=== PATIENT | male | born 1970 | race Caucasian/White ===

== ENCOUNTER 2016-12-08 13:14 | Emergency (ER) | payer OTHER ==
--- NOTE | 2016-12-08 14:46 | UC ---
[facility] Dental HPI - HPI Summary HPI Summary: 46 YEAR OLD MALE PRESENTS WITH RIGHT LOWER MOLAR ABSCESS. - History of Current Complaint Chief Complaint: UCDentalProblem Stated Complaint: TOOTH ACHE Time Seen by Provider: 12/08/16 14:44 Hx Obtained From: Patient Onset/Duration: Sudden Onset Severity: Moderate Pain Scale Used: 0-10 Numeric - 5 - Allergies/Home Medications Allergies/Adverse Reactions: Allergies Allergy/AdvReac Type Severity Reaction Status Date / Time No Known Allergies Allergy Verified 12/08/16 13:31 PMH/Surg Hx/FS Hx/Imm Hx Previously Healthy: Yes - Surgical History Surgical History: Yes Surgery Procedure, Year, and Place: 2 Cardiac stents placed 12/28/11. - Family History Known Family History: Positive: None - Social History Alcohol Use: None Substance Use Type: Marijuana Substance Use Comment - Amount & Last Used: 3 x daily Smoking Status (MU): Heavy Every Day Tobacco Smoker Type: Cigarettes Length of Time of Smoking/Using Tobacco: 20 year Have You Smoked in the Last Year: Yes Household Exposure Type: Cigarettes - Immunization History Most Recent Influenza Vaccination: none Most Recent Tetanus Shot: 2011 Most Recent Pneumonia Vaccination: none Review of Systems Constitutional: Negative Skin: Negative Eyes: Negative ENT: Dental Pain Respiratory: Negative Cardiovascular: Negative Gastrointestinal: Negative Genitourinary: Negative Motor: Negative Neurovascular: Negative Musculoskeletal: Negative Neurological: Negative Psychological: Negative All Other Systems Reviewed And Are Negative: Yes Physical Exam Triage Information Reviewed: Yes Vital Signs: Initial Vital Signs Temp 36.6 C 12/08/16 13:35 Pulse 78 12/08/16 13:35 Resp 18 12/08/16 13:35 Pulse Ox 100 12/08/16 13:35 Eye Exam: Normal ENT Exam: Normal Dental: Positive: Abscess @ Neck exam: Normal Neck: Positive: 1 Respiratory Exam: Normal Cardiovascular Exam: Normal Abdominal Exam: Normal Musculoskeletal Exam: Normal Neurological Exam: Normal Psychological Exam: Normal Skin Exam: Normal Dental Complaint Course/Dx - Differential Dx/Diagnosis Provider Diagnoses: RIGHT LOWER DENTAL ABSCESS Discharge - Discharge Plan Condition: Stable Disposition: HOME Prescriptions: Amoxicillin/Clavulanate TAB* [Augmentin TAB 875*] 875 mg PO BID #20 tab Chlorhexidine MW 0.12% 473ML* [Peridex Mouth Wash 0.12%*] 15 ml MT TID PC #1 btl Naproxen [Naprosyn 500 mg] 500 mg PO BID PRN #30 tab PRN Reason: Pain Patient Education Materials: Dental Abscess (ED) Referrals: No Primary Care Phys,NOPCP [Primary Care Provider] -
== END 2016-12-08 14:55 | disposition home or self-care (01) ==
LOC: UCEAST 13:14
DX: K04.7 Periapical abscess without sinus (principal); Z95.5 Presence of coronary angioplasty implant and graft; F12.90 Cannabis use, unspecified, uncomplicated; F17.210 Nicotine dependence, cigarettes, uncomplicated
CPT/HCPCS: 99212; G0463

== ENCOUNTER 2017-08-27 09:07 | Emergency (ER) | payer OTHER ==
[2017-08-27 09:17] VITALS: BP 149/95
--- NOTE | 2017-08-27 10:04 | UC ---
Skin Complaint HPI - HPI Summary HPI Summary: 47 yo male presents with rash and swelling to his right thumb, left thumb, and left index finger. He tells me that 5 days ago he was fishing catfish in a tournament. He handled many fish with his bare hands and fingers were scraped and biten multiple times. Later that day noticed redness and swelling to the above mentioned digits. Has been applying ice with no relief. Denies fever, chills, drainage, or streaking. - History of Current Complaint Chief Complaint: UCSkin Time Seen by Provider: 08/27/17 10:03 Stated Complaint: SKIN COMPLAINT Hx Obtained From: Patient Onset/Duration: Sudden Onset Skin Exposure Onset/Duration: Days Ago Onset Severity: Moderate Current Severity: Moderate Pain Intensity: 6 Pain Scale Used: 0-10 Numeric - Allergy/Home Medications Allergies/Adverse Reactions: Allergies Allergy/AdvReac Type Severity Reaction Status Date / Time No Known Allergies Allergy Verified 08/27/17 09:19 Review of Systems Constitutional: Negative Skin: Rash Respiratory: Negative Cardiovascular: Negative Neurovascular: Negative Musculoskeletal: Negative Neurological: Negative Psychological: Negative All Other Systems Reviewed And Are Negative: Yes PMH/Surg Hx/FS Hx/Imm Hx Previously Healthy: Yes Endocrine History: Dyslipidemia Cardiovascular History: Cardiac Disease, Hypertension - Surgical History Surgical History: Yes Surgery Procedure, Year, and Place: 2 Cardiac stents placed 12/28/11. - Family History Known Family History: Positive: None - Social History Occupation: Employed Full-time Lives: With Family Alcohol Use: None Substance Use Type: Marijuana Substance Use Comment - Amount & Last Used: 3 x daily Smoking Status (MU): Former Smoker Type: Cigarettes Length of Time of Smoking/Using Tobacco: 20 year Have You Smoked in the Last Year: Yes Household Exposure Type: Cigarettes - Immunization History Most Recent Influenza Vaccination: none Most Recent Tetanus Shot: 2011 Most Recent Pneumonia Vaccination: none Physical Exam - Summary Physical Exam Summary: GENERAL: NAD. WDWN. No pain distress. SKIN: Left and right thumbs and left index finger: Moderate edema. Diffuse scratches and mild erythema. Mild TTP. No streaking, bleeding, or drainage. NECK: Supple. Nontender. No lymphadenopathy. CHEST: No accessory muscle use. Breathing comfortably and in no distress. CV: Pulses intact radial and ulnar. NEURO: Alert. CN II-XII grossly intact. PSYCH: Age appropriate behavior. Triage Information Reviewed: Yes Vital Signs: Initial Vital Signs Temp 98 F 08/27/17 09:13 Pulse 80 08/27/17 09:13 Resp 18 08/27/17 09:13 BP 149/95 08/27/17 09:13 Pulse Ox 100 08/27/17 09:13 Course/Dx - Course Course Of Treatment: Cellulitis. Rx for keflex - Diagnoses Provider Diagnoses: Cellulitis fingers Discharge - Sign-Out/Discharge Documenting (check all that apply): Discharge/Admit/Transfer - Discharge Plan Condition: Stable Disposition: HOME Prescriptions: Cephalexin CAP* [Keflex CAP*] 500 mg PO TID #21 cap Patient Education Materials: Cellulitis (DC) Referrals: No Primary Care Phys,NOPCP [Primary Care Provider] - Additional Instructions: If you develop a fever, shortness of breath, chest pain, new or worsening symptoms - please call your PCP or go to the ED. Your blood pressure was high at todays visit. Please see your primary provider within 4 weeks for recheck and re-evaluation. 1) If your fingers do not improve or seem to worsen - please go to the ED - Billing Disposition and Condition Condition: STABLE Disposition: Home
== END 2017-08-27 10:22 | disposition home or self-care (01) ==
LOC: UCEAST 09:07
DX: L03.012 Cellulitis of left finger (principal); L03.011 Cellulitis of right finger; E78.5 Hyperlipidemia, unspecified; I10 Essential (primary) hypertension; I51.9 Heart disease, unspecified; Z95.5 Presence of coronary angioplasty implant and graft; Z87.891 Personal history of nicotine dependence
CPT/HCPCS: 99202; G0463

== ENCOUNTER 2017-11-11 15:57 | Inpatient (IN) | payer OTHER ==
--- NOTE | 2017-11-11 16:13 | ED ---
HPI Chest Pain - HPI Summary HPI Summary: 47 y/o male presents to the ED c/o mild chest discomfort diffusely for 3-4 days. Pt states it "felt different, like indigestion". Denies CP currently. Denies SOB, N/V. Associated sx: diaphoresis. Pt seen at PCP and had an abnormal EKG, sent to ED. 2x prior TX, stents placed. Former smoker. 81 ASA today. - History of Current Complaint Chief Complaint: EDChestPainROMI Hx Obtained From: Patient Onset/Duration: Started Days Ago Pain Intensity: 1 Pain Scale Used: 0-10 Numeric Chest Pain Location: Diffuse Character: Other: - "different like indigestion" Aggravating Factor(s): Nothing Alleviating Factor(s): Nothing Associated Signs and Symptoms: Positive: Chest Pain, Diaphoresis. Negative: Shortness of Breath, Vomiting - Allergy/Home Medications Allergies/Adverse Reactions: Allergies Allergy/AdvReac Type Severity Reaction Status Date / Time No Known Allergies Allergy Verified 11/11/17 16:05 Home Medications: Home Medications Aspirin EC TAB* [Ecotrin EC Low Dose 81 MG*] 81 mg PO QAM 11/11/17 [History Confirmed 11/11/17] Clopidogrel TAB* [Plavix TAB*] 75 mg PO DAILY 11/11/17 [History Confirmed ] Lovastatin (NF) [Mevacor (NF)] 40 mg PO BEDTIME 11/11/17 [History Confirmed ] Metoprolol Tartrate TAB* [Lopressor TAB*] 25 mg PO BID 11/11/17 [History Confirmed 11/11/17] [place]-3 Fatty Acids (Nf) [Fish Oil (NF)] 1,000 mg PO DAILY 11/11/17 [History Confirmed 11/11/17] PMH/Surg Hx/FS Hx/Imm Hx Previously Healthy: No Endocrine/Hematology History: Denies: Hx Diabetes, Hx Thyroid Disease Cardiovascular History: Reports: Hx Angioplasty - stent to RCA 12/28/11, Hx Hypertension Respiratory History: Denies: Hx Asthma, Hx Chronic Obstructive Pulmonary Disease (COPD), Hx Sleep Apnea GI History: Denies: Hx Ulcer - Surgical History Surgery Procedure, Year, and Place: 2 Cardiac stents placed 12/28/11. Infectious Disease History: No Infectious Disease History: Denies: Hx Clostridium Difficile, Hx Hepatitis, Hx Human Immunodeficiency Virus (HIV), Hx Shingles, Hx Tuberculosis, Hx Known/Suspected VRE, Hx Known/ Suspected VRSA, History Other Infectious Disease, Traveled Outside the [place] in Last 30 Days - Family History Known Family History: Positive: None - Social History Alcohol Use: None Substance Use Type: Reports: Marijuana Substance Use Comment - Amount & Last Used: 3 x daily Smoking Status (MU): Former Smoker Type: Cigarettes Length of Time of Smoking/Using Tobacco: 20 year Have You Smoked in the Last Year: Yes Review of Systems Positive: Skin Diaphoresis Eyes: Negative ENT: Negative Positive: Chest Pain Respiratory: Negative Gastrointestinal: Negative Genitourinary: Negative Musculoskeletal: Negative Skin: Negative Neurological: Negative Psychological: Normal All Other Systems Reviewed And Are Negative: No Physical Exam - Summary Physical Exam Summary: Appearance: Alert, conversive, nontoxic appearing Skin: Warm, dry, no mottling, no rashes, no contusions HEENT: EOMI, PERRL, moist mucous membranes Neck: No masses on the neck, supple Respiratory: Clear to auscultation, breath sounds present, no rales, no rhonchi , no wheezes Cardiovascular: RRR, pulses are symmetrical in both lower and upper extremities Abdomen: Soft, non-tender Bowel Sounds: Present Musculoskeletal: No CVA tenderness, no obvious deformity, moving all extremities in a grossly normal manner Neurological: A&Ox3, CN II-XII Intact, moving all extremities symmetrically Psychiatric: Normal affect and mood Triage Information Reviewed: Yes Vital Signs On Initial Exam: Initial Vitals Temp Pulse Resp BP Pulse Ox 98.8 F 76 20 152/91 95 11/11/17 16:01 11/11/17 16:01 11/11/17 16:01 11/11/17 16:01 11/11/17 16:01 Vital Signs Reviewed: Yes Diagnostics - Vital Signs Vital Signs Temp Pulse Resp BP Pulse Ox 11/11/17 16:01 98.8 F 76 20 152/91 95 - Laboratory Result Diagrams: 11/11/17 16:23 11/11/17 16:23 Lab Statement: Any lab studies that have been ordered have been reviewed, and results considered in the medical decision making process. - Radiology CXR Xray Interpretation: No Acute Changes Radiology Interpretation Completed By: Radiologist Re-Evaluation - Re-Evaluation 1 Re-Evaluation Time: 17:15 Comment: discuss plan to admit. pt agrees Chest Pain Course/Dx - Course Assessment/Plan: 47 y/o male w/ mild chest discomfort for 3-4 days. Sent from PCP after abnormal EKG. 2 previous TX. CXR NAD. EKG - SR @ 64 BPM. Prolonged QRSD, Normal QTc, Inverted ST T waves in III and aVF. Spoke with Dr. Briggs, who accepted the pt for admission. - Diagnoses Provider Diagnoses: NSTEMI (non-ST elevated myocardial infarction) - Provider Notifications Discussed Care Of Patient With: Anupama Briggs Time Discussed With Above Provider: 17:10 Instructed by Provider To: Admit As Inpatient Discharge - Sign-Out/Discharge Documenting (check all that apply): Patient Departure - Discharge Plan Condition: Stable Disposition: ADMITTED TO [facility] Referrals: No Primary Care Phys,NOPCP [Primary Care Provider] - - Billing Disposition and Condition Condition: STABLE Disposition: Admitted to [facility] - Attestation Statements Document Initiated by Scribe: Yes Documenting Scribe: Wolf Talley Provider For Whom Scribe is Documenting (Include Credential): Claudia Ya MD Scribe Attestation: Wolf Shetty, scribed for Claudia Ya MD on 11/11/17 at 1814. Scribe Documentation Reviewed: Yes Provider Attestation: The documentation as recorded by the Wolf salomon accurately reflects the service I personally performed and the decisions made by me, Claudia Ya MD
[2017-11-11] MEDS ORDERED: Aspirin TAB* 325 MG PO ONE (16:27)
[2017-11-11] MEDS ORDERED: Aspirin 81 mg CHEW TAB* 81 MG TAB.CHEW ONE (16:37)
[2017-11-11 16:39] LABS: ABS Basophils 0.1 10^3/ul (0-0.2); ABS Eosinophils 0.4 10^3/ul (0-0.6); ABS Lymphocytes 2.8 10^3/ul (1.0-4.8); ABS Monocytes 0.5 10^3/ul (0-0.8); ABS Neutrophils 3.7 10^3/ul (1.5-7.7); ABS Nucleated RBC 0 10^3/ul; Eosinophil % 4.7 % (0-6); Hematocrit 43 % (42-52); Hemoglobin 14.4 g/dl (14.0-18.0); Lymphocyte % 37.5 % (25-47); Mean Corpuscular HGB Conc 34 g/dl (31-36); Mean Corpuscular Hemoglobin 30 pg (27-31); Mean Corpuscular Volume 88 fL (80-94); Mean Platelet Volume 7.8 um3 (7.4-10.4); Nucleated Red Blood Cells % 0; Platelet Count 299 10^3/ul (150-450); Red Blood Count 4.84 10^6/ul (4.00-5.40); Red Cell Distribution Width 15 % (10.5-15); White Blood Count 7.4 10^3/ul (3.5-10.8)
[2017-11-11 16:48] LABS: Urine Appearance Clear; Urine Blood Negative (Negative); Urine Color Yellow; Urine Ketones Negative (Negative); Urine Protein Negative (Negative); Urine Specific Gravity 1.017 (1.010-1.030); Urine Urobilinogen Negative (Negative)
[2017-11-11 16:51] LABS: EGFR Non-African American 68.3 (>60)
--- NOTE | 2017-11-11 16:53 | RAD ---
INDICATION: Chest pain COMPARISON: None TECHNIQUE: A single AP portable image taken at 1640 hours is submitted. FINDINGS: Bones/Soft Tissues: There are no acute bony findings. Cardiomediastinal: The cardiomediastinal silhouette is normal. Lungs: There are no infiltrates. Pleura: There are no pleural effusions. Other: None IMPRESSION: NO ACTIVE DISEASE.
[2017-11-11] MEDS ORDERED: Albuterol 2.5 MG/3 ML NEB.SOL* (0.083%) INH PRN (18:09)
[2017-11-11] MEDS ORDERED: Morphine INJ* 2 MG/ML 1 ML SYRINGE (TWO MG - NEW SYRINGE VERSION) IV PRN (18:09)
[2017-11-11] MEDS ORDERED: Ondansetron INJ* 2 MG/ML VIAL IV PRN (18:09)
[2017-11-11] MEDS ORDERED: Al Hydrox/Mg Hydrox/Simet LIQ* 30 ML UDC PO PRN (18:09)
[2017-11-11] MEDS ORDERED: Acetaminophen TAB* 325 MG PO PRN (18:09)
[2017-11-11] MEDS ORDERED: NS 0.9% 1000 ML* 1,000 ML IV SCH (18:15)
[2017-11-11] MEDS ORDERED: Nitroglycerin TAB 0.4 MG* 0.4 MG TAB SL PRN (18:20)
[2017-11-11] MEDS ORDERED: Heparin DRIP 25,000 UNITS(*) 25,000 UNITS/500 ML BAG IV SCH (18:45)
[2017-11-11] MEDS ORDERED: Nitroglycerin 2% OINT* 1 GM PAK TOPICAL ONE (18:45)
[2017-11-11] MEDS ORDERED: Magnesium Sulfate 1 GM IV* 1 GM/100 ML BAG IV ONE (19:09)
[2017-11-11] MEDS ORDERED: Potassium Chlor TAB* 20 MEQ TAB.ER PO ONE (19:09)
--- NOTE | 2017-11-11 20:46 | HP ---
CC: Dr. Grayson * ADMISSION HISTORY AND PHYSICAL: DATE OF ADMISSION: 11/11/17 ATTENDING HOSPITALIST: Stephani Albert MD * (DICTATED BY CELESTINA ALMEIDA) PRIMARY LAND DEVELOPMENT MANAGER: Dr. Quarles. PRIMARY CARE PHYSICIAN: None listed. CHIEF COMPLAINT: Chest pain. HISTORY OF PRESENT ILLNESS: Mr. Leonard is a 47-year-old gentleman with past medical history significant for hypertension, hyperlipidemia, coronary artery disease for which he had cardiac catheterization with stent placement back in 2011 and again in 2012 and 2013, who presented to the emergency room earlier today with 1-week history of intermittent chest burning. The patient notes that he noticed some chest discomfort more like burning in his lower chest with associated sweating on and off for the past week with minimal exertion. He had similar complaints back in 2013 and 2011 when he had myocardial infarction. He has been maintained on aspirin and Plavix since then and reports intermittent chest discomfort for the past week. He also reports drinking lots of coffee and 2 L of Pepsi on a regular basis every day. He has been a smoker most of his life who finally quit back in November 2016. Given his ongoing symptoms, he presented to the emergency room for evaluation. He has never had any stress test done per his testimony and I do not see any records to verify so. He had seen his primary care physician lastly in August of this year where he had some blood work done and reports that his blood pressure has been reasonable. He had laboratory workup that revealed normal CBC and chemistry, but his troponin came back elevated with value of 0.10. He also had an EKG done that revealed new ST depression on the inferior leads compared to a prior EKG back in 2013 when he had his PR. The patient currently had no chest pain in the emergency room, but given his multiple risk factors and his prior history of PR, we were asked to see the patient for further evaluation and to consider admission to telemetry for cardiac consultation and possible catheterization in the morning. PAST MEDICAL HISTORY: As mentioned above, significant for: 1. Hypertension. 2. Hyperlipidemia. 3. Coronary artery disease. 4. Morbid obesity. 5. History of lower extremity cellulitis. PAST SURGICAL HISTORY: Significant for cardiac catheterization with 2 stents placed back in 2011 and again, another cardiac catheterization with 1 stent placed in 2013. CURRENT MEDICATIONS: His medications at home include: 1. Aspirin 81 mg p.o. daily. 2. Plavix 75 mg p.o. daily. 3. Lovastatin 40 mg p.o. q.h.s. 4. Metoprolol 25 mg p.o. b.i.d. 5. [place] fish oil 1000 mg p.o. daily. ALLERGIES: He has no known drug allergies. FAMILY HISTORY: Significant for hypertension and coronary artery disease. SOCIAL HISTORY: The patient still works as a branch general manager, which involves lots of walking and climbing stairs. He quit smoking last November. He does not drink alcohol and he smokes marijuana occasionally. He listed his as his healthcare proxy carrier and he wishes to be a full code. REVIEW OF SYSTEMS: See HPI. Otherwise, 14-point review of systems were examined and were essentially negative. PHYSICAL EXAMINATION GENERAL: He is a pleasant obese middle-aged gentleman, in no acute distress or discomfort at the time of admission. VITAL SIGNS: Most recent set of vitals with temperature of 98.8, pulse of 68, respirations of 20 with O2 sat of 96% on room air, blood pressure of 152/91. HEENT: Head is normocephalic, atraumatic. Sclerae anicteric. PERRLA. EOMs intact. Oropharynx pink and moist with no exudates. NECK: Supple. Trachea midline. No cervical adenopathy, thyromegaly, or JVD. LUNGS: Clear to auscultation bilaterally. HEART: Regular rate and rhythm. Normal S1 and S2 without rubs, murmurs, or gallops. ABDOMEN: Soft, nontender, and nondistended. There are no hernias, masses, or hepatosplenomegaly. BACK: With normal curvature and no CVA tenderness. EXTREMITIES: Without cyanosis, clubbing, or edema. NEUROLOGIC: He is awake, alert, and oriented. Hand emergency veterinary assistant equal bilaterally and sensation is intact throughout. RECTAL: Exam deferred at this time. LABORATORY WORKUP: His labs today with CBC showing white count of 7000, hemoglobin 14.4, hematocrit of 43, and platelets of 299,000. His coags with INR of 0.8. Chemistry panel showing sodium of 137, potassium 3.9, chloride 103, CO2 of 27, BUN of 15, and creatinine of 1.14. His glucose is 96. LFTs within normal limits. Magnesium 1.8 and troponin as mentioned elevated at 0.10. His TSH is 2.8. ACCESSORY DIAGNOSTIC DATA: EKG compared to last study in [address] depressions in the inferior lead. Chest x-ray not done during this visit. IMPRESSION: A 47-year-old gentleman with past medical history of hypertension, hyperlipidemia, coronary artery disease who is status post cardiac catheterization with stent placement back in 2011 and again in 2013, who presents to the emergency room with 1-week history of intermittent chest discomfort and diaphoresis, found to have elevated troponin with some EKG changes today. ASSESSMENT AND PLAN: 1. Chest pain. The patient will be admitted to the telemetry unit for close monitoring. I discussed with him the rationale and to obtain trending troponin to rule out any possibility of acute coronary syndrome. The patient carries multiple risk factors given his age, morbid obesity, coronary artery disease and his prior catheterization with stenting. Dr. Grayson was requested for consultation and he presented to the emergency room and has seen the patient. We will give him an extra dose of metoprolol right now as well as nitro paste, check troponins again and repeat EKG in the morning. There is possibility that the patient will be taken to the catheterization lab tomorrow versus obtaining a stress test for further evaluation. I will also discuss with Dr. Grayson any possibility to start a heparin drip given his multiple risk factors. 2. Hypertension. I will continue his metoprolol as prescribed. 3. Coronary artery disease. We will continue his metoprolol, aspirin, and Plavix. 4. Hyperlipidemia. We will continue his statin therapy and check a fasting lipid panel in the morning. 5. DVT prophylaxis: The patient is a moderate risk and we will cover him with SCDs for the time being. 6. Code status: He is a full code. 7. Disposition: Admit to telemetry for observation and rule out acute coronary syndrome. Awaiting recommendation from cardiac consultation to proceed with catheterization in the morning versus getting a stress test done. I will discuss the case with my attending, Dr. Albert, for further recommendations regarding his care. CELESTINA ALMEIDA [id number]/[facility] #: [id number] JUAN
[2017-11-11] MEDS ORDERED: Atorvastatin* 10 MG TAB PO SCH (21:00)
[2017-11-11] MEDS: Metoprolol Tartrate TAB* 25 MG PO SCH ×3 (21:07→21:53)
--- NOTE | 2017-11-11 21:53 | CONS ---
CC: Dr. Escobar; Dr. Liz; Dr. Grayson * CARDIOLOGY CONSULTATION: DATE OF CONSULT: 11/11/17 REASON FOR EVALUATION: Chest pain, non-ST elevation ID. PATIENT OF: Dr. Escobar and Dr. Liz. HISTORY OF PRESENT ILLNESS: This is a very pleasant 47-year-old gentleman who has a history of coronary artery disease. He had an ID in 2011 and received 2 stents. He had another ID in 2013 and received an additional stent. He has been doing well since then until the last week. He has noted intermittent episodes of burning in his chest, sometimes associated with diaphoresis. It usually comes along with low levels of exertion and then resolves with resting for a couple of minutes. He has had several episodes a day over the last week. Last night he had an episode that occurred just picking up some tools and was associated with diaphoresis and forced him to sit down for a few minutes. His made him go to the doctor today and he was noted to have new EKG changes compared to August and was referred for evaluation in the ER. Here he was found to have elevated troponin of 0.10. He denies any chest pain currently. He has had no syncope or near syncope. No palpitations. No orthopnea. No peripheral edema. He does state he has been more tired this past week. He denies any fevers, chills, or sweats. He did have a cellulitis a month ago that was treated with antibiotics. PAST MEDICAL HISTORY: Include coronary artery disease with ID and PCI in 2011 and 2013; hypertension; hyperlipidemia; tobacco use, discontinued in November 2016. He denies diabetes. Obesity. He does snore at night, but has not been evaluated for sleep apnea, denies that he falls sleep easily during the day. PAST SURGICAL HISTORY: He denies any surgeries other than the stents. In November 2013, he had recurrent chest pain. He had right coronary artery stenting in 2011 and had recurrent chest pain, inferior wall ST elevation, found to have subtotal obstruction of the distal right coronary artery just proximal to his old stent and a drug-eluting stent was placed. His LAD had a 40 % narrowing at that time. Circumflex minimal irregularities. The right coronary was a large dominant vessel that had subtotal obstruction at the distal portion just prior to his old stent. The ostium of the PDA was small vessel that had 30% narrowing. EF was 45% with inferior wall hypokinesis. He had a 3.5 x 16 Promus premier stent deployed. MEDICATIONS: Include: 1. [place]-3 fatty acid. 2. Aspirin 81 mg a day. 3. Metoprolol 25 mg b.i.d. 4. Clopidogrel 75 mg a day. 5. Lovastatin 40 mg a day. ALLERGIES: He denies any allergies. FAMILY HISTORY: He has 3 brothers and 2 sisters, all half siblings. One brother had an ablation for a rhythm problem. His mother has diabetes in her 60s. Father of an ID at 63. SOCIAL HISTORY: He denies alcohol use. He does drink 5 cups of coffee a day and 2 L of Pepsi a day. He is to his second and has a child with her. He has 4 children from a previous marriage. REVIEW OF SYSTEMS: Review of symptoms x10 was negative except as above. PHYSICAL EXAM: He is a well-developed, obese gentleman, in no apparent distress. Blood pressure 152/91, pulse of 68. Atraumatic, normocephalic. Extraocular muscles intact. Sclerae anicteric. No significant JVD. Carotids 2 + without bruits. No cervical adenopathy or thyromegaly. Cardiac Exam: S1, S2 , with no murmurs, gallops, or rubs. Chest was clear. No CVAT. Abdomen: Obese. Bowel sounds present, nontender. No hepatosplenomegaly. Femoral pulses intact without bruits. Distal pulses are intact. No edema. Motor strength 5/5 bilaterally. Deep tendon reflexes 2/4. Alert and oriented x3. DIAGNOSTIC STUDIES/LAB DATA: CBC was normal. Sodium 137, potassium of 3.9, magnesium low at 1.8. Troponin elevated at 0.10. EKG revealed sinus rhythm with counter clockwise rotation and ST-T changes inferiorly suggestive of ischemia, new compared to September 2016. Chest x-ray revealed no active disease. IMPRESSION: My impression is that Mr. Leonard appears to have acute coronary syndrome with non-ST elevation ID. He is pain free at present, biggest score suggest unstable angina with progressive symptoms at minimal exertion over the last week. RECOMMENDATIONS: For the time being, I have recommended the followin. Would continue with his statin. 2. Would add IV heparin and continue his aspirin and Plavix. 3. Would add nitrates to his regimen. 4. Would correct his magnesium. Try to maintain his potassium over 4. 5. Would follow serial troponins and EKGs. 6. I have asked him to cut back on his caffeine intake. 7. We will discuss with Dr. Mckeon and refer for a possible catheterization tomorrow morning or sooner if he has worsening symptoms. [id number]/[facility] #: [id number] Discussed with Dr. Mckeon and patient. Will plan for cardiac cath 8.24 unless his cliniical condiition changes. KAVITA MARTINEZ
[2017-11-11] MEDS: Heparin VIAL(*) 5000 UNITS/ML VIAL (FIVE THOUSAND) IV PRN (22:26)
[2017-11-12 05:46] LABS: ABS Basophils 0 10^3/ul (0-0.2); ABS Eosinophils 0.4 10^3/ul (0-0.6); ABS Lymphocytes 2.1 10^3/ul (1.0-4.8); ABS Monocytes 0.4 10^3/ul (0-0.8); ABS Neutrophils 2.4 10^3/ul (1.5-7.7); ABS Nucleated RBC 0 10^3/ul; Eosinophil % 7.4 % (0-6); Hematocrit 43 % (42-52); Hemoglobin 14.5 g/dl (14.0-18.0); Lymphocyte % 39.1 % (25-47); Mean Corpuscular HGB Conc 34 g/dl (31-36); Mean Corpuscular Hemoglobin 30 pg (27-31); Mean Corpuscular Volume 88 fL (80-94); Mean Platelet Volume 7.8 um3 (7.4-10.4); Nucleated Red Blood Cells % 0.1; Platelet Count 281 10^3/ul (150-450); Red Blood Count 4.85 10^6/ul (4.00-5.40); Red Cell Distribution Width 15 % (10.5-15); White Blood Count 5.4 10^3/ul (3.5-10.8)
[2017-11-12 06:03] LABS: EGFR Non-African American 81.3 (>60)
[2017-11-12] MEDS: Heparin VIAL(*) 5000 UNITS/ML VIAL (FIVE THOUSAND) IV PRN (06:34)
[2017-11-12] MEDS ORDERED: Nitro Patch/OINT Remove TOPICAL ONE (06:45)
[2017-11-12] MEDS ORDERED: NS 0.9% 1000 ML* 1,000 ML IV SCH (07:00)
[2017-11-12] MEDS: Metoprolol Tartrate TAB* 25 MG PO SCH ×2 (08:10→20:48)
[2017-11-12] MEDS: Aspirin EC TAB* 81 MG TAB.EC PO SCH (08:10)
[2017-11-12] MEDS ORDERED: Clopidogrel TAB* 75 MG PO SCH (09:00)
[2017-11-12] MEDS ORDERED: fentaNYL* 50 MCG/ML 2 ML VIAL (100 MCG VIAL) ONE ×3 (09:23→10:18)
[2017-11-12] MEDS ORDERED: Heparin(*) 1000 UNIT/ML 10 ML VIAL CATH LAB IV ONE (09:23)
[2017-11-12] MEDS ORDERED: Midazolam* 1 MG/ML 10 ML VIAL (10 MG) ONE ×2 (09:23→10:00)
[2017-11-12] MEDS ORDERED: VERAPAMIL 2.5 MG/ML 2 ML VIAL ** 5 mg/2 ml ONE (09:25)
[2017-11-12] MEDS ORDERED: Lidocaine 1%* 5 ML VIAL ONE (09:26)
[2017-11-12] MEDS ORDERED: nitroGLYCERIN DRIP* 25,000 MCG/250 ML BTL ONE (09:26)
[2017-11-12] MEDS ORDERED: Heparin 2 UNITS/ML IVPREMIX* 2,000 ML IV ONE (09:26)
[2017-11-12] MEDS ORDERED: Iohexol 350 (CONTRAST) 200 ML MDV IV ONE ×2 (09:27)
--- NOTE | 2017-11-12 09:38 | ECHO ---
Patient: LARRY CARLOS [facility] Rec#: [id number] : 1970 Date: 11/12/2017 Age: 47y Height: 175 cm / 68.9 in Weight: 123.4 kg / 272.0 lbs Sex: M BSA: 2.35 Room#: [facility] Admit Date#: 11/11/2017 Type: Inpatient Referring: Shane Mike Reading: Jp Grayson MD Sealer Dry Cell[facility]ch[facility] Indication: Chest pain, NSTEMI BP: 134/67 HR: 57 Rhythm: Bradycardia Findings History: CAD with NV s/p PCI 2011 and 2013, HTN, HLD, obesity, former smoker. Technical Comments: The study quality is fair. Completed at 0845. Left Ventricle: The left ventricular chamber size is normal. Mild concentric left ventricular hypertrophy is observed. There is a focal wall motion abnormality present. There is mildly decreased left ventricular systolic function. The estimated ejection fraction is 40-45%. Abnormal left ventricular diastolic function is observed. Abnormal left ventricular diastolic filling is observed, consistent with impaired relaxation. The basal inferior, mid anterolateral, mid inferolateral, mid inferior, mid inferoseptal, apical lateral, and apical inferior wall segments are hypokinetic (score 2). Overall wallmotion score index is 1.44 Left Atrium: The left atrium is mildly dilated. Right Ventricle: Moderator Band present. The right ventricle is mild to moderately dilated. The right ventricle wall thickness is mildly increased. The right ventricular global systolic function is normal. Right Atrium: The right atrium is mild to moderately dilated. Aortic Valve: The aortic valve is trileaflet. The aortic valve leaflets are mildly thickened. There is no evidence of aortic regurgitation. There is no evidence of aortic stenosis. Mitral Valve: The mitral valve leaflets are mildly thickened. There is a trace of mitral regurgitation. There is no evidence of mitral stenosis. Tricuspid Valve: The tricuspid valve leaflets are normal. There is trace tricuspid regurgitation. Unable to estimate the right ventricular systolic pressure. There is no tricuspid stenosis. Pulmonic Valve: The pulmonic valve appears normal. There is a trace pulmonic regurgitation. There is no pulmonic stenosis. Pericardium: There is no significant pericardial effusion. A pericardial fat pad is visualized. Aorta: There is no dilatation of the ascending aorta. There is no dilatation of the aortic arch. There is moderate dilatation of the aortic root. Pulmonary Artery: The main pulmonary artery appears normal. Venous: The inferior vena cava appears normal in size. There is a greater than 50% respiratory change in the inferior vena cava dimension. Conclusions Mild concentric left ventricular hypertrophy is observed. There is a focal wall motion abnormality present. There is mildly decreased left ventricular systolic function. The estimated ejection fraction is 40-45%. Abnormal left ventricular diastolic filling is observed, consistent with impaired relaxation. The left atrium is mildly dilated. The left atrium is mildly dilated. The right ventricle is mild to moderately dilated. The right ventricle wall thickness is mildly increased. The right atrium is mild to moderately dilated. The aortic valve leaflets are mildly thickened. There is a trace of mitral regurgitation. There is trace tricuspid regurgitation. There is moderate dilatation of the aortic root. Compared to 03/2014, The LVEF has decreased from 45-50% then to 40-45% now and the inferoposterior wall motion abnormality seems somewhat larger. Measurements Name Value Normal Range RVIDd (AP) 2D 3.9 cm (0.9 - 2.6) RVDdMajor (2D) 5.1 cm (2.2 - 4.4) RVAW (2D) 0.6 cm (0.2 - 0.5) RAd ISD 4CH 5.5 cm (3.4 - 4.9) RA (A4C)W 5 cm (2.9 - 4.6) IVSd (2D) 1.1 cm (0.6 - 1) LVPWd (2D) 1.1 cm (0.6 - 1) LVIDd (2D) 5.4 cm (3.6 - 5.4) LVIDs (2D) 3.5 cm - LV FS (2D) 35 % (25 - 45) Aortic Annulus 2.5 cm (1.4 - 2.6) Ao root diameter (2D) 4.1 cm (2.1 - 3.5) Ascending Ao 3.2 cm (2.1 - 3.4) Aortic arch 2.6 cm (1.8 - 3.4) LA dimension (AP) 2D 4.1 cm (2.3 - 3.8) LAd ISD 4CH 5.7 cm (2.9 - 5.3) LA ISD 4CH W 5 cm (2.5 - 4.5) Name Value Normal Range LA ESV BP (A/L) index 34 ml/m2 - Name Value Normal Range MV E-wave Vmax 0.7 m/sec - MV deceleration time 208 msec - MV A-wave Vmax 0.9 m/sec - MV E:A ratio 0.7 ratio - LV septal e' Vmax 0.06 m/sec - LV lateral e' Vmax 0.07 m/sec - LV E:e' septal ratio 11.67 ratio - LV E:e' lateral ratio 10 ratio - Name Value Normal Range AV Vmax 1.2 m/sec - AV VTI 25.7 cm - AV peak gradient 6 mmHg - AV mean gradient 3 mmHg - LVOT Vmax 0.8 m/sec - LVOT VTI 14.2 cm - LVOT peak gradient 3 mmHg - LVOT mean gradient 1 mmHg - YUNG Vmax 1 m/sec - Name Value Normal Range IVC diameter 1.9 cm - Name Value Normal Range PV Vmax 1 m/sec - PV peak gradient 4 mmHg - Wallmotion BAS Normal BA Normal BAL Normal RAE Normal BI Hypokinetic BIS Normal MAS Normal MA Normal MAL Hypokinetic MIL Hypokinetic NV Hypokinetic MIS Hypokinetic Normal AA Normal AL Hypokinetic AI Hypokinetic APEX Normal
[2017-11-12] MEDS ORDERED: Ticagrelor* 90 MG TAB PO ONE (10:25)
[2017-11-12] MEDS ORDERED: NS 0.9% 1000 ML* 400 ML IV ONE (11:00)
[2017-11-12] MEDS ORDERED: Nitroglycerin TAB 0.4 MG* 0.4 MG TAB SL PRN (11:00)
--- NOTE | 2017-11-12 12:33 | PN ---
Subjective Date of Service: 11/12/17 Interval History: HOSPITALIST PROGRESS NOTE Patient seen and examined at bedside. Care reviewed and d/w Leif Mukherjee RN. He feels well today, denies any further episodes of chest pressure. Family History: Unchanged from Admission Social History: Unchanged from Admission Past Medical History: Unchanged from Admission Objective Active Medications: Acetaminophen (Tylenol Tab*) 975 mg PO Q6H PRN PRN Reason: FEVER/PAIN Al Hydrox/Mg Hydrox/Simethicone (Maalox Plus*) 30 ml PO Q6H PRN PRN Reason: INDIGESTION Albuterol (Ventolin 2.5 Mg/3 Ml Neb.Kat*) 2.5 mg INH [id number] AWAKE PRN PRN Reason: sob/wheezing Aspirin (Aspirin Ec Tab*) 81 mg PO QAM [facility] Last Admin: 11/12/17 08:10 Dose: 81 mg Atorvastatin Calcium (Lipitor*) 80 mg PO BEDTIME [facility]; Protocol Sodium Chloride (Ns 0.9% 1000 Ml*) 1,000 mls @ 100 mls/hr IV .per rate [facility] Sodium Chloride (Ns 0.9% 1000 Ml*) 400 mls @ 100 mls/hr IV .FOR 4 HOURS ONE Stop: 11/12/17 14:59 Last Admin: 11/12/17 11:34 Dose: 100 mls/hr Metoprolol Tartrate (Lopressor Tab*) 25 mg PO BID [facility] Last Admin: 11/12/17 08:10 Dose: 25 mg Morphine Sulfate (Morphine Inj ((Syringe))*) 2 mg IV Q4H PRN PRN Reason: PAIN - SEVERE Nitroglycerin (Nitroglycerin Tab 0.4 Mg*) 0.4 mg SL Q5M PRN PRN Reason: ANGINA Ondansetron HCl (Zofran Inj*) 4 mg IV Q4H PRN PRN Reason: NAUSEA/VOMITING Ticagrelor (Brilinta*) 90 mg PO BID [facility] Vital Signs - 8 hr 11/12/17 11/12/17 11/12/17 07:24 11:15 11:17 Temperature 97.8 F 97.2 F Pulse Rate 66 50 55 Respiratory 16 16 Rate Blood Pressure 148/87 135/81 (mmHg) O2 Sat by Pulse 98 95 96 Oximetry 11/12/17 11/12/17 11:18 11:30 Temperature Pulse Rate 50 54 Respiratory 15 Rate Blood Pressure 135/81 134/86 (mmHg) O2 Sat by Pulse 95 96 Oximetry Oxygen Devices in Use Now: None Appearance: Pleasant gentleman sitting up in bed in NAD. Eyes: No Scleral Icterus Ears/Nose/Mouth/Throat: Mucous Membranes Moist Neck: Trachea Midline Respiratory: Symmetrical Chest Expansion and Respiratory Effort, Clear to Auscultation Cardiovascular: RRR - Normal S1 and S2 Neurological: Alert and Oriented x 3, NL Muscle Strength and Tone Result Diagrams: 11/12/17 05:36 11/12/17 05:36 Assess/Plan/Problems-Billing Assessment: Mr Leonard is a 47yo M with PMH of CAD s/p stents x 3, HTN, HLD, morbid obesity, who presented to ED with c/o chest pressure, found to have, - Patient Problems (1) NSTEMI (non-ST elevated myocardial infarction) Comment: - Continue medical management with Aspirin, Brilinta, Metoprolol, statin, Heparin drip. - For cardiac cath today. - F/u echo. (2) HTN (hypertension) Comment: - Controlled. - Continue Metoprolol. (3) HLD (hyperlipidemia) Comment: - Continue statin. (4) DVT prophylaxis Comment: - SCDs. (5) Full code status Status and Disposition: Inpatient for management of NSTEMI requiring cardiac cath and medical management.
[2017-11-12] MEDS: Ticagrelor* 90 MG TAB PO SCH (20:48)
[2017-11-12] MEDS ORDERED: Atorvastatin* 80 MG TAB PO SCH (21:00)
--- NOTE | 2017-11-12 22:08 | CATH ---
CC: Dr. Escobar; Dr. Citlali Mckeon STENT REPORT: DATE OF PROCEDURE: 11/12/17 PRIMARY CARE PROVIDER: Dr. Escobar in [place]. PROCEDURE: Right radial artery access, bilateral selective coronary cineangiography, left heart cath eterization, left ventriculography, stent placement RCA 4.0 x 20 drug-eluting stent. HISTORY: A 47-year-old male with inferior wall infarct, 2011, treated with a mid- to-distal RCA sten t; in 2013, he had another stent placed proximal to the prior stent. He now presents with progressiv e angina culminating in rest pain with a small troponin rise consistent with a non-ST elevation infar ct. PROCEDURE ACCESS: Right radial artery sheath 6F Slender. MEDICATIONS: 1. Subcu lidocaine. 2. IV Versed. 3. IV fentanyl. 4. Heparin 3000 units. 5. Verapamil 3 mg. 6. Nitroglycerin 300 mcg IA. 7. Brilinta 180 mg p.o. loading dose, heparin 4000 units IV, 200 mcg IC nitroglycerin. DIAGNOSTIC CATHETER: 5F TIG4, 5F pigtail. GUIDING CATHETER: RCA 6FR-4 used with a 14 BMW wire to deploy a 4 x 20 Synergy drug-eluting stent, m id RCA, which was then post dilated with a 4 x 20 NC balloon to 20 atmospheres, 30 seconds. HEMODYNAMICS: Initial AO 105/76. LV 110/8-12, no aortic valve gradient on pullback. ANGIOGRAPHY: Left main: Left main is very long, has no stenosis. LAD: The LAD is large, extends to the apex, it has a mid-luminal irregularity, but no significant st enosis. Circumflex: The circumflex is tortuous, large, with a proximal marginal branch, which is large follo wed by second large marginal, distally ends with a small posterolateral. The circumflex is not domin ant, has no stenosis. RCA: The RCA is large, dominant, there are previously placed stents proximal to the crux. The mid R CA has a new 90% stenosis, distal flow is BRENT-3. The PDA is moderate followed by large posterolater al. There is no significant in-stent re- stenosis. LV gram: There is localized mid inferior akinesis, estimated LVEF 45%, no mitral regurgitation. After RCA stent placement and post dilatation, there is BRENT-3 flow, no residual stenosis, a jailed R V branch is not compromised. Distal to the stent, spasm resolved with IC nitroglycerin. CONCLUSION: 1. Single-vessel disease, RCA, with new mid RCA stenosis with non-ST elevation infarct, excellent an giographic result with drug-eluting stent placement. No in- stent re-stenosis of the prior stents. 2. LV systolic dysfunction as before with history of prior inferior infarct. 3. Normal left-sided hemodynamics. 4. Successful right radial access. [id number]/[facility] [place] #: [id number]
[2017-11-13 05:47] LABS: EGFR Non-African American 86.4 (>60)
[2017-11-13] MEDS: Aspirin EC TAB* 81 MG TAB.EC PO SCH (08:57)
[2017-11-13] MEDS: Ticagrelor* 90 MG TAB PO SCH (08:57)
[2017-11-13] MEDS: Metoprolol Tartrate TAB* 25 MG PO SCH (08:57)
[2017-11-13 11:02] VITALS: BP 118/79
[2017-11-13] MEDS ORDERED: Lisinopril TAB* 5 MG PO SCH (12:00)
--- NOTE | 2017-11-14 00:01 | DS ---
CC: Dr. Quarles; Dr. Porfirio Delong at the [facility] DISCHARGE SUMMARY: DATE OF ADMISSION: 11/11/17 DATE OF DISCHARGE: 11/13/17 ANTIQUE FINISHER: Dr. Quarles. DISCHARGE DIAGNOSIS: Non-ST elevation myocardial infarction, status post stent to the right coronary artery. SECOND DIAGNOSES: 1. Coronary artery disease. 2. Hypertension. 3. Hyperlipidemia. 4. Obesity with a BMI of 38. MEDICATIONS: At the time of discharge: 1. Aspirin 81 mg p.o. daily. 2. Metoprolol tartrate 25 mg p.o. b.i.d. 3. [place]-3 of 1000 mg p.o. daily. New Medications: 1. Atorvastatin 80 mg p.o. at bedtime. 2. Lisinopril 5 mg p.o. daily. 3. Brilinta 90 mg p.o. b.i.d. Lovastatin and Plavix were discontinued. HOSPITAL COURSE: Mr. Leonard is a 47-year-old male with a past medical history as stated above that pr esented to the emergency room with complaints of progressive episodes of chest pain, initially with e xertion and now even at rest. From more details about his presentation, I refer you to his history a nd physical. The patient was seen in consultation by Cardiology (Dr. Grayson) and the impression was that the patie nt presented with acute coronary syndrome with a non-ST elevation with a troponin of 0.1. His recomm endation was to continue medical management with IV heparin, aspirin, Plavix, statin, and he recommen ded evaluation by Interventional Cardiology. The patient had a transthoracic echocardiogram that showed an ejection fraction of 40% to 45% with le ft ventricular diastolic filling observed. The patient underwent a cardiac cath on 11/12/[address] Mckeon and he was found to have single-vess el disease in the RCA with new mid RCA stenosis with a non-ST elevation CT and excellent angiographic result with drug-eluting stent placement. There was no in-stent restenosis of the prior stents. The patient did well after the procedure, had no further episodes of chest pain and was felt to be st able for discharge. The patient was also found to have an triglycerides of 516, LDL of 92, and he received education abou t his diet and his statin was changed to atorvastatin at 80 mg daily. PHYSICAL EXAMINATION: Vital Signs: Temperature 98.0, heart rate is 65, respiratory rate is 17, oxyg en saturation is 95% on room air, blood pressure is 118/79. General: The patient is a pleasant, mid dle-aged, obese gentleman, sitting up in bed, in no acute distress, anxious for discharge. CVS: Nor mal S1, S2. Regular rate and rhythm. Chest: Breath sounds present bilaterally with no added sounds. Right wrist cath access shows no hematoma. Neuro: He is alert and oriented x3. Able to move all 4 extremities. DIET: Heart-healthy diet. ACTIVITY: As tolerated. DISPOSITION: To home. STATUS WHILE IN THE HOSPITAL: Inpatient. Please keep in mind this is a summarized version of this patient's hospital stay. If you need more in formation, please feel free to call me at [phone] or please obtain the full medical records. TIME SPENT: Approximately 45 minutes was spent to complete this discharge. [id number]/[facility] #: [id number]
== END 2017-11-13 12:00 | disposition home or self-care (01) | DRG 174 ==
LOC: ED 15:57 → MEDTELE 18:09 → ICU 11-12 11:36 → OBSVTOIN 11-12 12:41
PROVIDERS: ADMIT Hospitalist; ATTEND Internal Medicine
PROC: B2111ZZ Fluoroscopy of Multiple Coronary Arteries using Low Osmolar Contrast (ICD-10-PCS; 2017-11-12)
PROC: B2151ZZ Fluoroscopy of Left Heart using Low Osmolar Contrast (ICD-10-PCS; 2017-11-12)
PROC: 027034Z Dilation of Coronary Artery, One Artery with Drug-eluting Intraluminal Device, Percutaneous Approach (ICD-10-PCS; 2017-11-12)
PROC: 4A023N7 Measurement of Cardiac Sampling and Pressure, Left Heart, Percutaneous Approach (ICD-10-PCS; principal; 2017-11-12 09:00)
DX: I21.4 Non-ST elevation (NSTEMI) myocardial infarction (principal); I10 Essential (primary) hypertension; E78.5 Hyperlipidemia, unspecified; E66.01 Morbid (severe) obesity due to excess calories; R06.83 Snoring; I25.119 Atherosclerotic heart disease of native coronary artery with unspecified angina pectoris; Z68.38 Body mass index [BMI] 38.0-38.9, adult; Z79.82 Long term (current) use of aspirin; Z79.02 Long term (current) use of antithrombotics/antiplatelets; Z95.5 Presence of coronary angioplasty implant and graft; Z82.49 Family history of ischemic heart disease and other diseases of the circulatory system; Z87.891 Personal history of nicotine dependence; I25.2 Old myocardial infarction
CPT/HCPCS: 36415; 71045; 80048; 80053; 80061; 81003; 83605; 83721; 83735; 84443; 84484; 85025; 85347; 85730; 87641; 93005; 93306; 93458; 99156; 99157; 99285; A9270-GY; C1725; C1769; C1876; C1887; C9600-RC; J1644; J2250; J3010; J3475

== ENCOUNTER 2018-02-20 19:23 | Emergency (ER) | payer OTHER ==
--- NOTE | 2018-02-20 21:59 | ED ---
Skin Complaint - HPI Summary HPI Summary: This patient is a 47 year old M presenting to [facility] accompanied by his with a chief complaint an abscess on his neck that got worse 2 days ago it got worse. He had what resembled a pimple for a month. The patient rates the pain 2/ 10 in severity. Symptoms aggravated by palpation. Patient reports erythema that circles the protruding lump. Patient denies fever, chills, trouble breathing, and trouble swallowing. No hx of DM - History of Current Complaint Chief Complaint: EDRashSkinAbscess Time Seen by Provider: 02/20/18 21:49 Stated Complaint: LUMP ON NECK Hx Obtained From: Patient Onset/Duration: Still Present, Worse Since - 2 Skin Exposure Onset/Duration: Days Ago - 2 Timing: Constant Onset Severity: Mild Current Severity: Moderate Pain Intensity: 2 Pain Scale Used: 0-10 Numeric Skin Location: Neck Character: Pain, Redness, Raised Associated Signs & Symptoms: Negative - fever - Additional Pertinent History Primary Care Physician: SOPHIE - Allergy/Home Medications Allergies/Adverse Reactions: Allergies Allergy/AdvReac Type Severity Reaction Status Date / Time No Known Allergies Allergy Verified 11/14/17 09:01 PMH/Surg Hx/FS Hx/Imm Hx Endocrine/Hematology History: Denies: Hx Diabetes, Hx Thyroid Disease Cardiovascular History: Reports: Hx Angioplasty - stent to RCA 12/28/11, Hx Hypertension, Hx Myocardial Infarction Respiratory History: Denies: Hx Asthma, Hx Chronic Obstructive Pulmonary Disease (COPD), Hx Sleep Apnea GI History: Denies: Hx Ulcer Sensory History: Denies: Hx Contacts or Glasses, Hx Hearing Aid Opthamlomology History: Denies: Hx Contacts or Glasses - Surgical History Surgery Procedure, Year, and Place: 2 Cardiac stents placed 12/28/11. Infectious Disease History: No Infectious Disease History: Denies: Hx Clostridium Difficile, Hx Hepatitis, Hx Human Immunodeficiency Virus (HIV), Hx Shingles, Hx Tuberculosis, Hx Known/Suspected VRE, Hx Known/ Suspected VRSA, History Other Infectious Disease, Traveled Outside the [place] in Last 30 Days - Family History Known Family History: Positive: Cardiac Disease - father , Hypertension - Social History Occupation: Employed Full-time Lives: With Family Alcohol Use: None Substance Use Type: Reports: Marijuana Substance Use Comment - Amount & Last Used: 3 x daily Smoking Status (MU): Former Smoker Type: Cigarettes Length of Time of Smoking/Using Tobacco: 20 year Have You Smoked in the Last Year: Yes Review of Systems Negative: Fever, Chills - ENT: Negative - , trouble breathing, and trouble swallowing. Skin: Other - neck abscess Positive: Other - erythema All Other Systems Reviewed And Are Negative: Yes Physical Exam - Summary Physical Exam Summary: VITAL SIGNS: Reviewed. GENERAL: Patient is a well-developed and nourished male who is lying comfortable in the stretcher. Patient is not in any acute respiratory distress. HEAD AND FACE: No signs of trauma. No ecchymosis, hematomas or skull depressions. No sinus tenderness. EYES: PERRLA, EOMI x 2, No injected conjunctiva, no nystagmus. EARS: Hearing grossly intact. Ear canals and tympanic membranes are within normal limits. MOUTH: Oropharynx within normal limits. NECK: Supple, trachea is midline, no adenopathy, no JVD, no carotid bruit, no c- spine tenderness, neck with full ROM. CHEST: Symmetric, no tenderness at palpation LUNGS: Clear to auscultation bilaterally. No wheezing or crackles. CVS: Regular rate and rhythm, S1 and S2 present, no murmurs or gallops appreciated. ABDOMEN: Soft, non-tender. No signs of distention. No rebound no guarding, and no masses palpated. Bowel sounds are normal. EXTREMITIES: FROM in all major joints, no edema, no cyanosis or clubbing. NEURO: Alert and oriented x 3. No acute neurological deficits. Speech is normal and follows commands. SKIN: there is a 1.5-1.5 cm tender swelling at the right para medial area of the neck with surrounding erythema. Triage Information Reviewed: Yes Vital Signs On Initial Exam: Initial Vitals Temp Pulse Resp BP Pulse Ox 99.4 F 78 20 148/87 97 02/20/18 19:27 02/20/18 19:27 02/20/18 19:27 02/20/18 19:27 02/20/18 19:27 Vital Signs Reviewed: Yes Procedures - Incision and Drainage Midline Neck Site: middle of the neck near the trachea Anesthesia: Local, Lidocaine Instrument(s): Scalpel Packing: Gauze Diagnostics - Vital Signs Vital Signs Temp Pulse Resp BP Pulse Ox 02/20/18 19:27 99.4 F 78 20 148/87 97 - Laboratory Lab Statement: Any lab studies that have been ordered have been reviewed, and results considered in the medical decision making process. Course/Dx - Course Assessment/Plan: This patient is a 47 year old M presenting to [facility] accompanied by his with a chief complaint an abscess on his neck that got worse 2 days ago it got worse. He had what resembled a pimple for a month. The patient rates the pain 2/10 in severity. Symptoms aggravated by palpation. Patient reports erythema that circles the protruding lump. Patient denies fever , chills, trouble breathing, and trouble swallowing. No hx of DM. The abscess was drained and packed with gauze in the ED. Lidocaine was used. Purulent discharge with some blood. 1cc of puss sent for culture. In the ED course the patient was given Percocet and cleocin. Patient will be discharged with prescription for antibiotic and follow up from surgery. The patient is agreeable with this plan. - Diagnoses Provider Diagnoses: Abscess Discharge - Sign-Out/Discharge Documenting (check all that apply): Patient Departure - Discharge Plan Condition: Stable Disposition: HOME Prescriptions: Clindamycin Cap(NF) [Clindamycin Cap 300 mg Cap(NF)] 300 mg PO Q6H #30 cap Ibuprofen TAB* [Motrin TAB* 800 MG] 800 mg PO Q6H PRN #30 tab PRN Reason: Pain Patient Education Materials: Abscess (ED) Referrals: Yane Escobar MD [Primary Care Provider] - Vasquez Mix MD [Medical Doctor] - As Soon As Possible Additional Instructions: If you cannot see a surgeon by 02-22-18 return to the emergency department. RETURN TO THE EMERGENCY DEPARTMENT FOR CHANGING OR WORSENING SYMPTOMS - Attestation Statements Document Initiated by Scribe: Yes Documenting Scribe: Mario Contreras Provider For Whom Scribe is Documenting (Include Credential): Diogenes Perkins MD Scribe Attestation: Mario Shetty scribed for Diogenes Perkins MD on 02/20/18 at 9517. Status of Scribe Document: Ready
[2018-02-20] MEDS ORDERED: Clindamycin CAP* 150 MG PO ONE (22:02)
[2018-02-20] MEDS ORDERED: oxyCODONE/Acetamin 5/325 MG* TAB PO ONE (22:03)
[2018-02-20 22:50] VITALS: BP 141/76
== END 2018-02-20 22:52 | disposition home or self-care (01) ==
LOC: ED 19:23
DX: L02.11 Cutaneous abscess of neck (principal); I10 Essential (primary) hypertension; I25.2 Old myocardial infarction; Z87.891 Personal history of nicotine dependence
CPT/HCPCS: 10060; 87070; 87205; 87640; 87641; 99283; A9270-GY

== ENCOUNTER 2019-05-03 10:10 | Emergency (ER) | payer OTHER ==
[2019-05-03 10:25] VITALS: BP 132/88
--- NOTE | 2019-05-03 10:50 | UC ---
Shoulder Pain HPI - HPI Summary HPI Summary: 48-year-old male who was working with a large blob of [place] last evening at work when he pulled on it and felt a sharp shooting pain to his right upper shoulder. He denies any difficulty breathing, no chest pain, no nausea or vomiting, no numbness or tingling in his arms and no radiation of pain. - History of Current Complaint Chief Complaint: UCUpperExtremity Stated Complaint: SHOULDER PAIN Time Seen by Provider: 05/03/19 10:41 Hx Obtained From: Patient Onset/Duration: Sudden Onset, Still Present Severity Initially: Moderate Severity Currently: Mild Pain Intensity: 9 Character: Sharp Aggravating Factor(s): Lifting - Patient states he has more pain in the anterior shoulder when he lifts his arm but then once he has it lifted pain is better. It hurts a little more when he flexes his muscles. Alleviating Factor(s): Rest Associated Signs And Symptoms: Negative: Numbness/Tingling Related History: Dominant Hand Right - Patient continued his work shift last evening. - Allergies/Home Medications Allergies/Adverse Reactions: Allergies Allergy/AdvReac Type Severity Reaction Status Date / Time No Known Allergies Allergy Verified 05/03/19 10:25 PMH/Surg Hx/FS Hx/Imm Hx Previously Healthy: Yes Cardiovascular History: Hypertension, Myocardial Infarction - Surgical History Surgical History: Yes Surgery Procedure, Year, and Place: 3 Cardiac stents placed 12/28/11. - Family History Known Family History: Positive: Cardiac Disease - father , Hypertension, Other - kidney stones in brother - Social History Alcohol Use: None Substance Use Type: Marijuana Substance Use Comment - Amount & Last Used: 3 x daily Smoking Status (MU): Former Smoker Type: Cigarettes Length of Time of Smoking/Using Tobacco: 20 year Have You Smoked in the Last Year: Yes Household Exposure Type: Cigarettes - Immunization History Most Recent Influenza Vaccination: none Most Recent Tetanus Shot: 2011 Most Recent Pneumonia Vaccination: none Review of Systems All Other Systems Reviewed And Are Negative: Yes Respiratory: Negative: Shortness Of Breath Cardiovascular: Negative: Chest Pain Motor: Positive: Other - Patient states when he tries to lift his right arm he has sharp pain to the anterior shoulder. Neurovascular: Positive: Negative Musculoskeletal: Positive: Other: - Patient has good range of motion but with pain to the anterior shoulder. Neurological/Mental Status: Negative: Paresthesia, Numbness Is Patient Immunocompromised?: No Physical Exam Triage Information Reviewed: Yes Appearance: No Pain Distress, Well-Nourished Vital Signs: Initial Vital Signs Temp 98.8 F 05/03/19 10:20 Pulse 69 05/03/19 10:20 Resp 17 05/03/19 10:20 BP 132/88 05/03/19 10:20 Pulse Ox 99 05/03/19 10:20 Vital Signs Reviewed: Yes Respiratory: Positive: Lungs clear, Normal breath sounds, No respiratory distress, No accessory muscle use Cardiovascular: Positive: RRR, No Murmur, Pulses Normal, Brisk Capillary Refill Musculoskeletal: Positive: Strength Intact, ROM Intact - Patient has good range of motion but does it slowly because he feels pain in the anterior shoulder. No bruising, erythema, deformity or swelling. Good peripheral pulses neuro sensation capillary refill. Good arm strength against resistance but with pain to the anterior bursa. Normal muscle contour but with tenderness on palpation to the right shoulder bursa. Clavicle and AC joint nontender on palpation. Neurological: Positive: Muscle Tone Normal Psychological Exam: Normal Skin Exam: Normal Shoulder Course/Dx - Course Course Of Treatment: The patient is comfortable here. I believe this is either a bursitis or a muscle strain given the type of injury. He was advised to rest his arm and shoulder over the next few days and a definite follow-up with the orthopedist on Wednesday if continued pain or sooner if any worsening symptoms. - Differential Dx/Diagnosis Provider Diagnosis: Bursitis of right shoulder, Muscle strain of right shoulder region Discharge ED - Sign-Out/Discharge Documenting (check all that apply): Patient Departure All imaging exams completed and their final reports reviewed: No Studies - Discharge Plan Condition: Fair Disposition: HOME Patient Education Materials: Shoulder Bursitis (ED) Forms: *Work Release Referrals: Yane Escobar MD [Primary Care Provider] - Atul Gregory MD [Medical Doctor] - Additional Instructions: Apply heat or ice to the sore area, which ever feels good. May take Aleve twice a day for pain. Avoid movements that cause pain. Definite follow-up with the orthopedist on Wednesday if no improvement or worsening symptoms. - Billing Disposition and Condition Condition: FAIR Disposition: Home
== END 2019-05-03 11:02 | disposition home or self-care (01) ==
LOC: UCEAST 10:10
DX: S46.911A Strain of unspecified muscle, fascia and tendon at shoulder and upper arm level, right arm, initial encounter (principal); I10 Essential (primary) hypertension; I25.2 Old myocardial infarction; M75.51 Bursitis of right shoulder; Z87.81 Personal history of (healed) traumatic fracture; X50.0XXA Overexertion from strenuous movement or load, initial encounter; Y93.89 Activity, other specified; Y92.9 Unspecified place or not applicable; Y99.0 Civilian activity done for income or pay
CPT/HCPCS: 99211; G0463

== ENCOUNTER 2023-12-16 10:12 | Observation (INO) ==
[2023-12-16] MEDS: Ondansetron 4 mg VIAL 2 MG/ML 2 ml VIAL IV ONE (13:10)
[2023-12-16] MEDS: Lactated Ringers 1000 ml BAG 1,000 ML IV ONE (13:10)
[2023-12-16 13:24] LABS: ABS Basophils 0.1 10^3/uL (0.0-0.1); ABS Lymphocytes 1.3 10^3/uL (1.0-4.8); ABS Monocytes 1.5 10^3/uL (0.0-1.1); ABS Neutrophils 12.3 10^3/uL (1.5-7.6); Hematocrit 48.4 % (38-53); Hemoglobin 16.1 g/dL (13.2-16.3); Lymphocyte % 8.5 %; Mean Corpuscular Hgb Conc 33.2 g/dL (31-36); Mean Corpuscular Volume 90.4 fL (80-97); Mean Platelet Volume 7.4 fL (7.5-11.2); Platelet Count 401 10^3/uL (150-450); Red Blood Count 5.35 10^6/uL (4.06-5.63); Red Cell Distribution Width 14.5 % (12-17); White Blood Count 15.1 10^3/uL (3.6-10.2)
[2023-12-16 13:38] LABS: Urine Appearance Turbid; Urine Bilirubin Negative (Negative); Urine Blood 3+ (Negative); Urine Color Yellow; Urine Glucose Negative (Negative); Urine Ketones Negative (Negative); Urine Nitrite 2+ (Negative); Urine Protein 1+ (>=30 mg/dL) (Negative); Urine Specific Gravity 1.022 (1.002-1.030); Urine Urobilinogen Negative (Negative); Urine pH 5.5 (5.0-8.0)
[2023-12-16 13:41] LABS: Activated Partial Thrombo Time 33.1 seconds (26.0-38.0); INR 1.15 (0.85-1.14)
[2023-12-16 13:47] LABS: Urine Bacteria 1+ /HPF (Absent); Urine Red Blood Cell 3+(>10/hpf) /HPF (0-Trace); Urine Squamous Epithelial Cell Present /HPF (Absent); Urine White Blood Cell 3+(>20/hpf) /HPF (0-Trace)
[2023-12-16 13:54] LABS: Albumin 4.3 g/dL (3.2-5.2); Albumin/Globulin Ratio 1.3 (1-3); C Reactive Protein 149.55 mg/L (<8.01); Calcium 10.2 mg/dL (8.6-10.3); Creatinine, Serum 1.42 mg/dL (0.67-1.17); Globulin 3.3 g/dL (2-4); Potassium 4.1 mmol/L (3.5-5.0); Total Bilirubin 0.8 mg/dL (0.2-1.0); Total Protein 7.6 g/dL (6.4-8.9); eGFR CKD-EPI 58.4 (>60)
[2023-12-16] MEDS: cefTRIAXone 2 gm/50 mL D5W 2 GM/50 ML BAG IV ONE (14:09)
[2023-12-16] MEDS: Iodixanol (CONTRAST) 320 MG/ML 100 ML SDV IV ONE (15:11)
[2023-12-16 15:16] LABS: High Sensitivity Troponin 1 Hr 14 pg/mL (<20)
[2023-12-16] MEDS ORDERED: Lidocaine 2% PF 5 ML VIAL ONE (17:15)
[2023-12-16] MEDS ORDERED: Midazolam 2 mg/2 ml VIAL 1 mg/ml 2 ml VIAL (2 mg) ONE (17:15)
[2023-12-16] MEDS ORDERED: fentaNYL 100 mcg/2 ml 50 MCG/ML VIAL ONE ×2 (17:16→18:50)
[2023-12-16] MEDS ORDERED: Iohexol 180 (CONTRAST) 10 ML SDV IV ONE (17:19)
[2023-12-16] MEDS ORDERED: Ondansetron 4 mg VIAL 2 MG/ML 2 ml VIAL ONE (17:44)
[2023-12-16] MEDS ORDERED: Ondansetron ODT 4 mg TAB 4 MG TAB SL PRN (18:03)
[2023-12-16] MEDS ORDERED: HYDROmorphone 0.5 MG/0.5 ML SYRINGE IV SLOW PU PRN ×2 (18:04→20:16)
[2023-12-16] MEDS ORDERED: HYDROmorphone 1 MG/1 ML SYRINGE IV SLOW PU PRN (18:05)
[2023-12-16] MEDS ORDERED: Ondansetron 4 mg VIAL 2 MG/ML 2 ml VIAL IV PRN (18:16)
[2023-12-16] MEDS ORDERED: Naloxone 0.4 mg VIAL 0.4 mg/ml 1 ml VIAL IV PRN (18:16)
[2023-12-16] MEDS: fentaNYL 100 mcg/2 ml 50 MCG/ML VIAL IV PRN (18:54)
[2023-12-16] MEDS: Lactated Ringers 1000 ml BAG 1,000 ML IV SCH (21:35)
[2023-12-16 22:05] LABS: ABS Basophils 0.1 10^3/uL (0.0-0.1); ABS Monocytes 1.2 10^3/uL (0.0-1.1); ABS Neutrophils 11.6 10^3/uL (1.5-7.6); Eosinophil % 0.1 %; Hematocrit 44.6 % (38-53); Hemoglobin 14.9 g/dL (13.2-16.3); Lymphocyte % 7.1 %; Mean Corpuscular Hemoglobin 30.5 pg (27-33); Mean Corpuscular Hgb Conc 33.5 g/dL (31-36); Mean Corpuscular Volume 91.3 fL (80-97); Mean Platelet Volume 7.6 fL (7.5-11.2); Platelet Count 361 10^3/uL (150-450); Red Blood Count 4.88 10^6/uL (4.06-5.63); Red Cell Distribution Width 14.6 % (12-17); White Blood Count 13.8 10^3/uL (3.6-10.2)
[2023-12-17 06:50] LABS: ABS Basophils 0.1 10^3/uL (0.0-0.1); ABS Lymphocytes 1.3 10^3/uL (1.0-4.8); ABS Monocytes 1.1 10^3/uL (0.0-1.1); Eosinophil % 0.2 %; Hematocrit 41.4 % (38-53); Hemoglobin 14.1 g/dL (13.2-16.3); Mean Corpuscular Hemoglobin 31.2 pg (27-33); Mean Corpuscular Hgb Conc 34.1 g/dL (31-36); Mean Corpuscular Volume 91.4 fL (80-97); Mean Platelet Volume 7.7 fL (7.5-11.2); Platelet Count 339 10^3/uL (150-450); Red Blood Count 4.53 10^6/uL (4.06-5.63); Red Cell Distribution Width 14.5 % (12-17); White Blood Count 12.5 10^3/uL (3.6-10.2)
[2023-12-17 07:10] LABS: Calcium 9.4 mg/dL (8.6-10.3); Creatinine, Serum 1.41 mg/dL (0.67-1.17); Magnesium 1.6 mg/dL (1.9-2.7); Potassium 4.2 mmol/L (3.5-5.0); eGFR CKD-EPI 58.9 (>60)
[2023-12-17] MEDS: Magnesium Sulfate 2 gm BAG 2 GM/50 ML BAG IVPB ONE (09:17)
[2023-12-17] MEDS: Enoxaparin 40 MG/0.4 ML SYR SUBCUT SCH (09:19)
[2023-12-17] MEDS: cefTRIAXone 1 gm/50 mL D5W 1 GM/50 ML BAG IV SCH (13:37)
[2023-12-18 05:11] LABS: ABS Eosinophils 0.2 10^3/uL (0.0-0.5); ABS Lymphocytes 1.6 10^3/uL (1.0-4.8); ABS Monocytes 1.1 10^3/uL (0.0-1.1); ABS Neutrophils 5.8 10^3/uL (1.5-7.6); Hematocrit 43.8 % (38-53); Hemoglobin 14.7 g/dL (13.2-16.3); Lymphocyte % 18.6 %; Mean Corpuscular Hemoglobin 30.4 pg (27-33); Mean Corpuscular Hgb Conc 33.5 g/dL (31-36); Mean Corpuscular Volume 90.8 fL (80-97); Mean Platelet Volume 7.7 fL (7.5-11.2); Platelet Count 393 10^3/uL (150-450); Red Blood Count 4.83 10^6/uL (4.06-5.63); Red Cell Distribution Width 14.7 % (12-17); White Blood Count 8.7 10^3/uL (3.6-10.2)
[2023-12-18 05:42] LABS: Calcium 9.6 mg/dL (8.6-10.3); Creatinine, Serum 1.21 mg/dL (0.67-1.17); Potassium 4.3 mmol/L (3.5-5.0); eGFR CKD-EPI 70.7 (>60)
[2023-12-18 10:41] VITALS: BP 119/78
== END 2023-12-18 11:35 | disposition home or self-care (01) ==
LOC: ED 10:12 → SSU 17:14 → OR 17:14 → SUATTDRO 17:37 → SSU 17:37
PROVIDERS: ATTEND Internal Medicine

== ENCOUNTER 2024-01-05 22:10 | Inpatient (IN) ==
[2024-01-05] MEDS: Piperacillin/Tazobac 3.375 BAG 3.375 GM/100 ML BAG IV ONE (23:14)
[2024-01-05] MEDS: Lactated Ringers 1000 ml BAG 1,000 ML IV ONE (23:21)
[2024-01-05 23:34] LABS: ABS Basophils 0.1 10^3/uL (0.0-0.1); ABS Monocytes 1.3 10^3/uL (0.0-1.1); ABS Neutrophils 10.5 10^3/uL (1.5-7.6); Eosinophil % 0.1 %; Hematocrit 42.1 % (38-53); Lymphocyte % 7.7 %; Mean Corpuscular Hemoglobin 30.5 pg (27-33); Mean Corpuscular Hgb Conc 33.3 g/dL (31-36); Mean Corpuscular Volume 91.4 fL (80-97); Mean Platelet Volume 7.7 fL (7.5-11.2); Platelet Count 299 10^3/uL (150-450); Red Blood Count 4.61 10^6/uL (4.06-5.63); Red Cell Distribution Width 15.2 % (12-17); White Blood Count 12.9 10^3/uL (3.6-10.2)
[2024-01-05 23:53] LABS: Activated Partial Thrombo Time 31.3 seconds (26.0-38.0); INR 1.11 (0.85-1.14)
[2024-01-05 23:56] LABS: Albumin 4.3 g/dL (3.2-5.2); Albumin/Globulin Ratio 1.7 (1-3); C Reactive Protein 77.1 mg/L (<8.01); Calcium 9.9 mg/dL (8.6-10.3); Creatinine, Serum 1.22 mg/dL (0.67-1.17); Globulin 2.6 g/dL (2-4); Potassium 3.8 mmol/L (3.5-5.0); Total Protein 6.9 g/dL (6.4-8.9)
[2024-01-06 01:02] LABS: High Sensitivity Troponin 1 Hr 16 pg/mL (<20)
[2024-01-06 01:14] LABS: Magnesium 1.3 mg/dL (1.9-2.7)
[2024-01-06] MEDS: Iohexol 350 (CONTRAST) 500 ML MDV IV ONE (01:21)
[2024-01-06] MEDS ORDERED: Zosyn per Pharmacy NOTE FOLLOW UP SCH (05:00)
[2024-01-06 05:09] LABS: Urine Appearance Clear; Urine Bilirubin Negative (Negative); Urine Blood 3+ (Negative); Urine Color Colorless; Urine Glucose Negative (Negative); Urine Ketones Negative (Negative); Urine Nitrite Negative (Negative); Urine Protein 1+ (>=30 mg/dL) (Negative); Urine Specific Gravity 1.044 (1.002-1.030); Urine Urobilinogen Negative (Negative); Urine pH 6.5 (5.0-8.0)
[2024-01-06] MEDS: Magnesium Sulf 4 GM/100 ML IV 4,000 MG/100 ML BAG IVPB ONE (05:23)
[2024-01-06] MEDS: ZOSYN 3.375 GM Q8H per EXTENDED INFUSION IV SCH (05:27)
[2024-01-06 05:51] LABS: Urine Bacteria Absent /HPF (Absent); Urine Red Blood Cell 3+(>10/hpf) /HPF (0-Trace); Urine Squamous Epithelial Cell Present /HPF (Absent); Urine White Blood Cell 2+(11-20/hpf) /HPF (0-Trace)
[2024-01-06] MEDS: Ondansetron 4 mg VIAL 2 MG/ML 2 ml VIAL IV ONE (06:05)
[2024-01-06 06:34] LABS: ABS Lymphocytes 0.8 10^3/uL (1.0-4.8); ABS Monocytes 1.2 10^3/uL (0.0-1.1); ABS Neutrophils 9.7 10^3/uL (1.5-7.6); Hematocrit 39.7 % (38-53); Hemoglobin 13.6 g/dL (13.2-16.3); Lymphocyte % 7.2 %; Mean Corpuscular Hemoglobin 31.3 pg (27-33); Mean Corpuscular Hgb Conc 34.1 g/dL (31-36); Mean Corpuscular Volume 91.6 fL (80-97); Mean Platelet Volume 7.6 fL (7.5-11.2); Platelet Count 273 10^3/uL (150-450); Red Blood Count 4.34 10^6/uL (4.06-5.63); Red Cell Distribution Width 15.3 % (12-17); White Blood Count 11.7 10^3/uL (3.6-10.2)
[2024-01-06 07:17] LABS: Calcium 9.6 mg/dL (8.6-10.3); Creatinine, Serum 1.21 mg/dL (0.67-1.17); Magnesium 1.9 mg/dL (1.9-2.7); eGFR CKD-EPI 70.7 (>60)
[2024-01-06] MEDS: Lactated Ringers 1000 ml BAG 1,000 ML IV SCH (09:01)
[2024-01-06] MEDS: Magnesium Sulfate 2 gm BAG 2 GM/50 ML BAG IVPB ONE (10:32)
[2024-01-06] MEDS: Aspirin EC 81 mg TAB.EC (enteric coated) PO SCH (11:10)
[2024-01-06] MEDS: Lactated Ringers 1000 ml BAG 1,000 ML IV ONE (12:56)
[2024-01-06] MEDS: NS 0.9% 1000 ml BAG 1,000 ML IV ONE (12:58)
[2024-01-06] MEDS ORDERED: NS 0.9% 1000 ml BAG 1,000 ML IV SCH (13:45)
[2024-01-06] MEDS: Heparin 5000 UNITS/ML 1 mL VIAL SUBCUT SCH (20:44)
[2024-01-07 06:58] LABS: ABS Eosinophils 0.1 10^3/uL (0.0-0.5); ABS Lymphocytes 1.3 10^3/uL (1.0-4.8); ABS Monocytes 1.1 10^3/uL (0.0-1.1); Eosinophil % 1.5 %; Hematocrit 38.3 % (38-53); Hemoglobin 13.1 g/dL (13.2-16.3); Lymphocyte % 15.4 %; Mean Corpuscular Hemoglobin 31.1 pg (27-33); Mean Corpuscular Hgb Conc 34.2 g/dL (31-36); Mean Corpuscular Volume 90.9 fL (80-97); Mean Platelet Volume 7.7 fL (7.5-11.2); Platelet Count 256 10^3/uL (150-450); Red Blood Count 4.21 10^6/uL (4.06-5.63); Red Cell Distribution Width 15.6 % (12-17); White Blood Count 8.5 10^3/uL (3.6-10.2)
[2024-01-07 07:39] LABS: Calcium 9.2 mg/dL (8.6-10.3); Creatinine, Serum 1.2 mg/dL (0.67-1.17); Magnesium 2.1 mg/dL (1.9-2.7); Potassium 4.2 mmol/L (3.5-5.0); eGFR CKD-EPI 71.4 (>60)
[2024-01-07 13:25] VITALS: BP 116/83
== END 2024-01-07 17:30 | disposition home or self-care (01) | DRG 720 ==
LOC: EDHOLD 22:10 → ED 22:10 → SUATTDRO 01-06 04:02 → SSU 01-06 07:38 → MED 01-06 07:47
PROVIDERS: ADMIT Internal Medicine; ATTEND Internal Medicine